=== PATIENT | male | born 1975 | race Caucasian/White ===

== ENCOUNTER → 2020-11-16 | Outpatient (CLI) | payer BC ==
[~2020-11-16] MED LIST: ACET325T9 PO; METO25TA4 PO; OXYC1TAB15 PO; PANT20TA2 PO; TAMS0.4C97 PO
== END ==
LOC: LAB 12:37
PROVIDERS: ATTEND Surgery
DX: Z01.812 Encounter for preprocedural laboratory examination (principal); K80.20 Calculus of gallbladder without cholecystitis without obstruction; Z20.822 Contact with and (suspected) exposure to COVID-19
CPT/HCPCS: U0003

== ENCOUNTER 2020-11-20 08:03 | Day surgery (SDC) | payer BC ==
[~2020-11-20] VITALS: Ht 180.3 cm; Wt 124.0 kg
[~2020-11-20 08:03] MED LIST changes: +BUPIVACAINE MPF 0.5% 30 ML VIAL. ONE; +DEXAMETHASONE SOD PHOS 4 MG/ML VIAL ONE; +HYDROmorphone 2 MG/ML VIAL IV PRN; +IOHEXOL 300 MG/ML 50 ML VIAL. ONE; +IV RINGERS,LACTATED 1000ML 1,000 ML IV SCH; +LIDOCAINE 1% PF 2 ML VIAL. ID PRN; +LIDOCAINE 2% PF 5 ML VIAL. ONE; +MIDAZOLAM HCL/PF 2 MG/2 ML VIAL. ONE; +ONDANSETRON PF 4 MG/2 ML VIAL. IV PRN; +ONDANSETRON PF 4 MG/2 ML VIAL. ONE; -OXYC1TAB15 PO; +PROCHLORPERAZINE 10 MG/2 ML VIAL. IV PRN; +PROPOFOL 10 MG/ML (20ML) VIAL. IV ONE; +ROCURONIUM 50 MG/5 ML VIAL. ONE; +SURGICEL HEMOSTAT 4X8 EACH. ONE; -TAMS0.4C97 PO; +fentaNYL PF VIAL 100 MCG/2 ML VIAL IV PRN; +fentaNYL PF VIAL 250 MCG/5 ML VIAL ONE
[2020-11-20] MEDS ORDERED: KETOROLAC 30 MG/ML VIAL. ONE (09:52)
[2020-11-20] MEDS ORDERED: NEOSTIGMINE METHYLSULFATE 5 MG/5 ML SYRINGE. ONE (09:59)
[2020-11-20] MEDS ORDERED: PROPOFOL 10 MG/ML (20ML) VIAL. IV ONE (09:59)
[2020-11-20] MEDS ORDERED: GLYCOPYRROLATE 1 MG/5 ML VIAL. ONE (09:59)
--- NOTE | 2020-11-20 10:30 | PDOC4 ---
Operative Note Operative Note Operative Note: Preoperative Diagnosis: Symptomatic cholelithiasis Postoperative Diagnosis: Same Procedure: Laparoscopic cholecystectomy with intraoperative cholangiogram Surgeons: Yonatan Lan/Wan Engineer: Meaghan Cool Anesthesia: Gen. Estimated Blood Loss: 10 mL Specimen: Gallbladder to pathology Drains: None Complications: None Indications: The patient is a 45-year-old male who is referred with upper abdominal symptoms. His evaluation identified gallstones. Surgical treatment was offered by means of a laparoscopic cholecystectomy. The risks of surgery were discussed which include bleeding, infection, bile duct injury, bile leak, pain, the potential for additional surgeries or procedures. The patient understands and would like to proceed. Description: The patient was taken to the operating room and laid supine on the operating table. General anesthesia was performed. The abdomen was prepped with ChloraPrep and draped in a standard surgical fashion. A small infraumbilical incision was made with a scalpel. The Veress needle was then inserted and a pneumoperitoneum was then created. A 5 mm trocar was then inserted and the laparoscope was introduced. In the upper midabdomen a 5 mm trocar was inserted and in the right upper quadrant two 5 mm trochars were inserted. The gallbladder was retracted cephalad. The cystic duct was dissected free from surrounding tissues. One clip was placed on the duct near the gallbladder junction. An opening was made in the duct and a cholangiocatheter placed within and secured with a clip. Using contrast dye and fluoroscopy an intraoperative cholangiogram was performed that appeared unremarkable. The clip and catheter were then withdrawn. Three clips were placed on the cystic duct and it was divided. The cystic artery was then identified, dissected free, doubly clipped and divided as well. The gallbladder was then mobilized away from the liver with cautery. The umbilical 5 millimeter trocar was exchanged for an 11 millimeter trocar. The gallbladder was then placed in an endoscopic bag and extracted at the umbilical trocar site. The fascia there was closed with an 0 Vicryl suture. All blood and irrigation fluid was suctioned and hemostasis was good. The remaining ports were removed and the pneumoperitoneum was relieved. The skin incisions were injected with half percent Marcaine with epinephrine, and all were closed using 4-0 Monocryl suture. Steri-Strips and dressings were then applied. The patient tolerated the procedure well and was sent to the recovery room in stable condition. At the end of the case all counts were correct. REGINA HUFF MD Nov 20, 2020 10:30
[2020-11-20] MEDS ORDERED: MORPHINE SULFATE 10 MG/ML VIAL. ONE (10:31)
--- NOTE | 2020-11-20 10:31 | DISCH ---
DISCHARGE INSTRUCTIONS Condition on Discharge Condition on Discharge: Stable Activity After Discharge Activity Instructions for Disc: Other, see below (No lifting over 20 lbs X 2 weeks) Diet after Discharge Diet after Discharge: Regular Wound Incision Care Wound/Incision Care: Other, see below (may remove bandaids tomorrow and shower) Follow-Up Follow up with: Dr Huff in 2 weeks in office, call for appointment REIGNA HUFF MD Nov 20, 2020 10:31
[2020-11-20] MEDS ORDERED: OXYC1TAB15 PO (11:14)
[2020-11-20] MEDS ORDERED: MORPHINE SULFATE 2 MG/ML VIAL. ONE (11:22)
[2020-11-20] MEDS: MORPHINE SULFATE 2 MG/ML VIAL. IV PRN ×2 (11:28→11:40)
[2020-11-20] MEDS ORDERED: oxyCODONE/APAP 5/325 1 TAB TABLET PO ONE (11:30)
[2020-11-20 11:36] VITALS: BP 126/67
--- NOTE | 2020-11-20 15:48 | RAD ---
Intraoperative cholangiogram 11/20/2020 CLINICAL HISTORY: Laparoscopic cholecystectomy for cholelithiasis. Three digital spot radiographs of the right upper quadrant of the abdomen were obtained during an int raoperative cholangiogram. The total fluoroscopic time is listed as 0.3 minutes. These images demonst rate contrast opacifying the cystic duct remnant, the common hepatic duct, portions of the left and r ight hepatic ducts and their branches and the common bile duct. These ducts are normal in caliber. No filling defect is seen. Free spillage of contrast into the duodenum is noted. IMPRESSION: Negative study. Electronically signed by: Johan Drew MD (11/20/2020 3:45 PM) [id number]
[2020-11-21] MEDS ORDERED: TAMS0.4C97 PO (05:51)
--- NOTE | 2020-11-23 09:21 | PATHOLOGY ---
[facility] Accession Number: [id number] . 01 Material submitted: . gallbladder - GALLBLADDER AND CONTENTS . 02 Diagnosis: Gallbladder, cholecystectomy: - Cholelithiasis. - Chronic cholecystitis. (JPM:darshana; 11/22/2020) S 11/22/2020 1528 Local . 02 Comment: There is no evidence of malignancy. (JPM:darshana; 11/22/2020) . 02 Electronically signed: . Prudencio Bolden MD, Pathologist NPI- [id number] . 01 Gross description: . The specimen is received in formalin labeled "Fabiana, Praveen, gallbladder and contents" and consists of an intact but deflated hess green gallbladder measuring 7.0 x 3.0 x 1.8 cm. The margin is inked black. Opening reveals a lumen filled with viscous green bile and 2 mulberry yellow calculi measuring 1.0 cm each. The mucosa is green and granular with scattered yellow flecks and an average wall thickness of 0.1 cm. No masses are identified. Technical Inspector sections are submitted in A1. (SDY; 11/21/2020) SYU/SYU 11/21/2020 1724 Local . 02 Pathologist provided ICD-10: K80.10 . 02 CPT . 510181 Specimen Comment: A courtesy copy of this report has been sent to [phone] Specimen Comment: Report sent to Specimen Comment: A duplicate report has been generated due to demographic updates. Performed at: 01 [facility] [address], [place], [place] [id number] MD Sanjay Webber MD Phone: [phone] Performed at: 02 [facility] [address], [place] [id number] MD Prudencio Bolden MD Phone: [phone]
== END 2020-11-20 12:23 | disposition home or self-care (01) ==
LOC: SURG 08:03
PROVIDERS: ATTEND Surgery
DX: K80.80 Other cholelithiasis without obstruction (principal); I10 Essential (primary) hypertension; K21.9 Gastro-esophageal reflux disease without esophagitis; Z87.891 Personal history of nicotine dependence; Z79.899 Other long term (current) drug therapy; Z98.890 Other specified postprocedural states; Z72.89 Other problems related to lifestyle; Z88.8 Allergy status to other drugs, medicaments and biological substances
CPT/HCPCS: 47563; 74300; J1100; J1885; J2270; J2405; J2704; J2710; J3010; J3490; J7120; Q9967; 88304; J2250

== ENCOUNTER 2020-11-21 04:08 | Emergency (ER) | payer BC ==
[~2020-11-21] VITALS: Ht 180.3 cm; Wt 125.8 kg
[~2020-11-21 04:08] MED LIST changes: -BUPIVACAINE MPF 0.5% 30 ML VIAL. ONE; -DEXAMETHASONE SOD PHOS 4 MG/ML VIAL ONE; -HYDROmorphone 2 MG/ML VIAL IV PRN; -IOHEXOL 300 MG/ML 50 ML VIAL. ONE; -IV RINGERS,LACTATED 1000ML 1,000 ML IV SCH; -LIDOCAINE 1% PF 2 ML VIAL. ID PRN; -LIDOCAINE 2% PF 5 ML VIAL. ONE; -MIDAZOLAM HCL/PF 2 MG/2 ML VIAL. ONE; -ONDANSETRON PF 4 MG/2 ML VIAL. IV PRN; -ONDANSETRON PF 4 MG/2 ML VIAL. ONE; +OXYC1TAB15 PO; -PROCHLORPERAZINE 10 MG/2 ML VIAL. IV PRN; -PROPOFOL 10 MG/ML (20ML) VIAL. IV ONE; -ROCURONIUM 50 MG/5 ML VIAL. ONE; -SURGICEL HEMOSTAT 4X8 EACH. ONE; -fentaNYL PF VIAL 100 MCG/2 ML VIAL IV PRN; -fentaNYL PF VIAL 250 MCG/5 ML VIAL ONE
--- NOTE | 2020-11-21 04:36 | ED.ADGEN ---
General Adult EDM: Chief Complaint: POST-OP PROBLEM HPI: HPI: Patient is a 45 year old male coming in for abdominal pain just below his umbilicus starting about 2 to 2.5 hours prior to arrival. He had a cholecystectomy done about 16 hours ago without complication. Patient states he woke up to prophylactically take a Percocet at 1 AM, then woke up at 2 AM with reflux and coughing with pain below his umbilicus. Says the pain is sharp and throbbing with his heartbeat. Patient states he initially had a difficult time urinating but has been going regularly since late in the day yesterday. Says he had a bowel movement about 24 hours ago but that it was a very small amount and feels like he is constipated. Patient states he feels like his abdomen is distended. Review of Systems: Review of Systems: My negative ROS Current Medications: Current Medications Medications (Trade) Dose Ordered Sig/Rosanna Start Time Stop Time Status Last Admin Dose Admin Famotidine (Pepcid Vial) 20 mg 1X ONCE 11/21/20 04:45 11/21/20 04:46 DC 11/21/20 04:54 20 MG Fentanyl Citrate (Fentanyl 2ml Vial) 75 mcg 1X ONCE 11/21/20 04:45 11/21/20 04:46 DC 11/21/20 04:55 75 MCG Info (CONTRAST GIVEN -- Rx MONITORING) 1 each PRN DAILY PRN 11/21/20 05:15 11/23/20 05:14 Iohexol (Omnipaque 300 Mg/ml) 75 ml 1X ONCE 11/21/20 05:15 11/21/20 05:16 DC 11/21/20 05:13 75 ML Lidocaine HCl (Glydo (Lidocaine) Jelly) 1 steven 1X ONCE 11/21/20 05:45 11/21/20 05:46 DC 11/21/20 05:46 1 STEVEN Ondansetron HCl (Zofran) 4 mg 1X ONCE 11/21/20 04:45 11/21/20 04:46 DC 11/21/20 04:54 4 MG Sodium Chloride 1,000 ml @ 1,000 mls/hr 1X ONCE 11/21/20 04:45 11/21/20 05:44 DC 11/21/20 04:50 1,000 MLS/HR Tamsulosin HCl (Flomax) 0.4 mg 1X ONCE 11/21/20 05:45 11/21/20 05:46 DC 11/21/20 05:46 0.4 MG Allergies: Allergies: Allergies Coded Allergies Type Severity Reaction Last Updated Verified hydrocortisone Allergy Intermediate Rash 11/20/20 Yes Physical Exam: PE: Constitutional: Well developed, well nourished, no acute distress, non-toxic appearance. [] HENT: Normocephalic, atraumatic, bilateral external ears normal, nose normal. [] Eyes: PERRLA, conjunctiva normal, no discharge. [] Neck: No rigidity, supple, no stridor. [] Cardiovascular: Regular rate and rhythm, brisk cap refill [] Lungs & Thorax: Non labored symmetric respirations, no tachypnea or respiratory distress [] Abdomen: Soft, mildly distended, tenderness below umbilicus. Skin: Dressings bandaged, clean dry and intact. On umbilical wound there is a 3 to 4 cm diameter area of erythema just below umbilicus, sutured wounds appear intact [] Back: No tenderness, no CVA tenderness. [] Extremities: No deformities, range of motion grossly intact, no lower extremity edema [] Neurologic: Alert and oriented X 3, no focal deficits noted. [] Psychologic: Affect normal, judgement normal, mood normal. [] Current Patient Data: Labs: Laboratory Tests Test 11/21/20 04:45 White Blood Count 10.1 x10^3/uL (4.0-11.0) Red Blood Count 4.54 x10^6/uL (4.30-5.70) Hemoglobin 14.0 g/dL (13.0-17.5) Hematocrit 40.9 % (39.0-53.0) Mean Corpuscular Volume 90 fL (79-100) Mean Corpuscular Hemoglobin 31 pg (25-35) Mean Corpuscular Hemoglobin Concent 34 g/dL (31-37) Red Cell Distribution Width 12.6 % (11.5-14.5) Platelet Count 278 x10^3/uL (140-400) Neutrophils (%) (Auto) 75 % (31-73) H Lymphocytes (%) (Auto) 17 % (24-48) L Monocytes (%) (Auto) 7 % (0-9) Eosinophils (%) (Auto) 0 % (0-3) Basophils (%) (Auto) 1 % (0-3) Neutrophils # (Auto) 7.6 x10^3/uL (1.8-7.7) Lymphocytes # (Auto) 1.7 x10^3/uL (1.0-4.8) Monocytes # (Auto) 0.7 x10^3/uL (0.0-1.1) Eosinophils # (Auto) 0.0 x10^3/uL (0.0-0.7) Basophils # (Auto) 0.1 x10^3/uL (0.0-0.2) Sodium Level 137 mmol/L (136-145) Potassium Level 4.1 mmol/L (3.5-5.1) Chloride Level 100 mmol/L (98-107) Carbon Dioxide Level 27 mmol/L (21-32) Anion Gap 10 (6-14) Blood Urea Nitrogen 15 mg/dL (8-26) Creatinine 1.0 mg/dL (0.7-1.3) Estimated GFR (Cockcroft-Gault) 80.4 BUN/Creatinine Ratio 15 (6-20) Glucose Level 130 mg/dL (70-99) H Lactic Acid Level 2.0 mmol/L (0.4-2.0) Calcium Level 9.2 mg/dL (8.5-10.1) Total Bilirubin 0.5 mg/dL (0.2-1.0) Aspartate Amino Transferase (AST) 40 U/L (15-37) H Alanine Aminotransferase (ALT) 89 U/L (16-63) H Alkaline Phosphatase 76 U/L (46-116) Total Protein 7.1 g/dL (6.4-8.2) Albumin 3.7 g/dL (3.4-5.0) Albumin/Globulin Ratio 1.1 (1.0-1.7) Laboratory Tests 11/21/20 04:45 Laboratory Tests 11/21/20 04:45 Vital Signs: Vital Signs Date Time Temp Pulse Resp B/P (MAP) Pulse Ox O2 Delivery O2 Flow Rate FiO2 11/21/20 04:55 95 11/21/20 04:45 58 20 11/21/20 04:15 99.7 141/73 (95) Room Air 99.7 EKG: EKG: [] Heart Score: Risk Factors: Risk Factors: DM, Current or recent (<one month) smoker, HTN, HLP, family history of CAD, obesity. Risk Scores: Score 0 - 3: 2.5% MACE over next 6 weeks - Discharge Home Score 4 - 6: 20.3% MACE over next 6 weeks - Admit for Clinical Observation Score 7 - 10: 72.7% MACE over next 6 weeks - Early Invasive Strategies Radiology/Procedures: Radiology/Procedures: EXAM: CT Abdomen and Pelvis with IV contrast CLINICAL HISTORY: Reason: post op pain, under umbilicus / Spl. Instructions: / History: . COMPARISON: none TECHNIQUE: Helical CT of the abdomen and pelvis was performed following the administration of intravenous contrast. Axial, coronal and sagittal reformatted images were generated. PQRS compliance statement - One or more of the following individualized dose reduction techniques were utilized for this study: 1. Automated exposure control 2. Adjustment of the mA and/or kV according to patient size 3. Use of iterative reconstruction technique FINDINGS: Lower Chest: Linear opacities lower lobes with a scarring/atelectasis. Abdomen and Pelvis: Hepatic hypoattenuation, likely fatty liver. Accounting for postcholecystectomy change, no biliary ductal dilatation. Spleen, adrenal glands and pancreas are grossly unremarkable. Symmetric nephrograms. 1.3 cm right upper pole hypodense renal lesion measures simple fluid. No hydronephrosis. Bladder is markedly distended. Appendix is normal. No small or large bowel dilatation. Moderate colonic stool c ontent is seen. No abdominal or pelvic ascites. Trace fat-containing periumbilical hernia is seen with associated periumbilical infiltration. No abdominal or pelvic lymphadenopathy by size criteria. Aorta is grossly normal in caliber. Bones: Spinal fusion hardware at the lumbosacral junction without obvious hardware complication. IMPRESSION: 1. Small fat-containing periumbilical hernia with associated inflammatory change. No discrete loculated fluid collection 2. Hepatic hypoattenuation, likely fatty liver. 3. Low-density lesion in the upper pole right kidney measures greater than s imple fluid. Although this may represent hemorrhagic or proteinaceous cyst, solid mass is not excluded and should be further assessed with ultrasound. 4. Marked distention of the bladder can be correlated for possible voluntary or involuntary causes of urinary retention. [] Course & Med Decision Making: Course & Med Decision Making Pertinent Labs and Imaging studies reviewed. (See chart for details) Patient has a large bladder on the CT scan, no other postop complications identified. Radiology read pending at shift change. Discussed with patient and the options of treatment for postop urinary retention with a straight cath and Flomax with return precautions versus sending home with an indwelling Izquierdo and leg bag to be removed later by his primary care provider. Patient opted for straight cath and Flomax. Voiced clear understanding of return precautions. Pending UA and CT read at shift change. [] Dragon Disclaimer: Dragon Disclaimer: This electronic medical record was generated, in whole or in part, using a voice recognition dictation system. Departure Departure Impression: Primary Impression: Postoperative urinary retention Disposition: 01 DC HOME SELF CARE/HOMELESS Condition: STABLE Referrals: JARETH WALKER MD (PCP) Patient Instructions: Urinary Retention, Acute, Male Additional Instructions: Return to emergency department if unable to urinate or increasing abdominal pain. Scripts Tamsulosin Hcl (FLOMAX) 0.4 Mg Cap.er.24h 1 CAP PO QHS for urinary retention for 10 Days, #10 CAP 11 Refills Prov: DANIA MELGAR MD 11/21/20 DANIA MELGAR MD Nov 21, 2020 04:36
[2020-11-21] MEDS ORDERED: FAMOTIDINE 20 MG/2 ML VIAL IVP ONE (04:45)
[2020-11-21] MEDS ORDERED: IV NORMAL SALINE 1000ML BAG 1,000 ML IV ONE (04:45)
[2020-11-21] MEDS ORDERED: fentaNYL PF VIAL 100 MCG/2 ML VIAL IVP ONE (04:45)
[2020-11-21] MEDS ORDERED: ONDANSETRON PF 4 MG/2 ML VIAL. IVP ONE (04:45)
[2020-11-21 04:52] LABS: BASO # 0.1 x10^3/uL (0.0-0.2); BASO % 1 % (0-3); EOS % 0 % (0-3); HEMATOCRIT 40.9 % (39.0-53.0); LYMPH # 1.7 x10^3/uL (1.0-4.8); LYMPH % 17 % (24-48); MEAN CORPUSCULAR HEMOGLOBIN 31 pg (25-35); MEAN CORPUSCULAR HGB CONC 34 g/dL (31-37); MEAN CORPUSCULAR VOLUME 90 fL (79-100); MONO # 0.7 x10^3/uL (0.0-1.1); MONO % 7 % (0-9); NEUT # 7.6 x10^3/uL (1.8-7.7); NEUT % 75 % (31-73); PLATELET COUNT 278 x10^3/uL (140-400); RED BLOOD COUNT 4.54 x10^6/uL (4.30-5.70); RED CELL DISTRIBUTION WIDTH 12.6 % (11.5-14.5); WHITE BLOOD COUNT 10.1 x10^3/uL (4.0-11.0)
[2020-11-21 05:00] VITALS: BP 124/66
[2020-11-21 05:00] LABS: CALCIUM 9.2 mg/dL (8.5-10.1); GFR 80.4; POTASSIUM 4.1 mmol/L (3.5-5.1)
[2020-11-21 05:06] LABS: ALBUMIN 3.7 g/dL (3.4-5.0); ALBUMIN/GLOBULIN RATIO 1.1 (1.0-1.7); TOTAL BILIRUBIN 0.5 mg/dL (0.2-1.0); TOTAL PROTEIN 7.1 g/dL (6.4-8.2)
[2020-11-21] MEDS ORDERED: CONTRAST GIVEN. MC PRN (05:15)
[2020-11-21] MEDS ORDERED: IOHEXOL 300 MG/ML 100ML VIAL. IV ONE (05:15)
[2020-11-21] MEDS ORDERED: LIDOCAINE 2% JELLY 6ML IN APPLICATOR. MM ONE (05:45)
[2020-11-21] MEDS ORDERED: TAMSULOSIN 0.4 MG CAP.ER.24H. PO ONE (05:45)
--- NOTE | 2020-11-21 05:45 | RAD ---
EXAM: CT Abdomen and Pelvis with IV contrast CLINICAL HISTORY: Reason: post op pain, under umbilicus / Spl. Instructions: / History: . COMPARISON: none TECHNIQUE: Helical CT of the abdomen and pelvis was performed following the administration of intrave nous contrast. Axial, coronal and sagittal reformatted images were generated. PQRS compliance statement - One or more of the following individualized dose reduction techniques wer e utilized for this study: 1. Automated exposure control 2. Adjustment of the mA and/or kV according to patient size 3. Use of iterative reconstruction technique FINDINGS: Lower Chest: Linear opacities lower lobes with a scarring/atelectasis. Abdomen and Pelvis: Hepatic hypoattenuation, likely fatty liver. Accounting for postcholecystectomy change, no biliary du ctal dilatation. Spleen, adrenal glands and pancreas are grossly unremarkable. Symmetric nephrograms. 1.3 cm right upper pole hypodense renal lesion measures simple fluid. No hydr onephrosis. Bladder is markedly distended. Appendix is normal. No small or large bowel dilatation. Moderate colonic stool content is seen. No abdominal or pelvic ascites. Trace fat-containing periumbilical hernia is seen with associated per iumbilical infiltration. No abdominal or pelvic lymphadenopathy by size criteria. Aorta is grossly normal in caliber. Bones: Spinal fusion hardware at the lumbosacral junction without obvious hardware complication. IMPRESSION: 1. Small fat-containing periumbilical hernia with associated inflammatory change. No discrete locula celso fluid collection 2. Hepatic hypoattenuation, likely fatty liver. 3. Low-density lesion in the upper pole right kidney measures greater than simple fluid. Although th is may represent hemorrhagic or proteinaceous cyst, solid mass is not excluded and should be further assessed with ultrasound. 4. Marked distention of the bladder can be correlated for possible voluntary or involuntary causes o f urinary retention. Electronically signed by: Mick Bob MD (11/21/2020 5:42 AM) ANASTACIA
[2020-11-21] MEDS ORDERED: TAMS0.4C97 PO (05:51)
== END 2020-11-21 06:33 | disposition home or self-care (01) ==
LOC: ER 04:08
DX: N99.89 Other postprocedural complications and disorders of genitourinary system (principal); R10.33 Periumbilical pain; R05 Cough; Z88.5 Allergy status to narcotic agent
CPT/HCPCS: 36415; 74177; 80053; 83605; 85025; 96361; 96374; 96375; 99285; J2405; J3010; J3490; J7030; Q9967